=== PATIENT | female | born 1960 | race Two or more races ===

== ENCOUNTER 2021-10-11 10:15 | Outpatient (CLI) | payer OTHER | END 2021-10-11 10:20 | disposition home or self-care (01) | LOC: RAD 10:15 | PROVIDERS: ATTEND Anesthesiology | DX: M43.8X7 Other specified deforming dorsopathies, lumbosacral region (principal) ==

== ENCOUNTER → 2025-08-09 07:10 | Outpatient (CLI) | payer OTHER | END | disposition home or self-care (01) | LOC: NUCLEAR 07:00 | DX: I20.9 Angina pectoris, unspecified (principal) | CPT/HCPCS: 78452; 93017; A9500 ==

== ENCOUNTER 2025-10-29 12:34 | Outpatient (CLI) | payer OTHER | END 2025-10-29 12:36 | disposition home or self-care (01) | LOC: RAD 12:34 | PROVIDERS: ATTEND Orthopaedic Surgery | DX: M25.561 Pain in right knee (principal); M25.562 Pain in left knee ==

== ENCOUNTER 2025-11-02 10:05 | Outpatient (CLI) | payer OTHER | END 2025-11-02 16:23 | disposition home or self-care (01) | LOC: MRI 10:05 | PROVIDERS: ATTEND Orthopaedic Surgery | DX: M79.645 Pain in left finger(s) (principal) | CPT/HCPCS: 73721 ==

== ENCOUNTER 2025-11-02 11:08 | Outpatient (CLI) | payer OTHER | END 2025-11-02 11:09 | disposition home or self-care (01) | LOC: NUCLEAR 11:08 | PROVIDERS: ATTEND Orthopaedic Surgery | DX: M81.0 Age-related osteoporosis without current pathological fracture (principal) ==